=== PATIENT | male | born 1985 | race Caucasian/White ===

== ENCOUNTER 2021-05-17 11:15 | Day surgery (SDC) | payer OTHER ==
[2021-05-12 12:40] VITALS: BMI 29.0
[2021-05-17 13:14] VITALS: TEMP 96.9
[2021-05-17 13:20] VITALS: BP 129/84; PULSE 84
== END 2021-05-17 13:35 | disposition home or self-care (01) ==
LOC: FASU-ENDO 11:15
PROVIDERS: ATTEND Internal Medicine Gastroenterology
PROC: 0DJD8ZZ Inspection of Lower Intestinal Tract, Via Natural or Artificial Opening Endoscopic (ICD-10-PCS; principal; 2021-05-17 12:37)
DX: Z12.11 Encounter for screening for malignant neoplasm of colon (principal); K92.1 Melena; K64.1 Second degree hemorrhoids; K64.8 Other hemorrhoids; R10.84 Generalized abdominal pain